=== PATIENT | female | born 1985 | race Caucasian/White ===

== ENCOUNTER 2018-08-04 05:56 | Inpatient (IN) | payer BC, MEDICAID ==
[2018-08-04] MEDS: Lactated Ringers 1,000 ML IV SCH ×4 (06:30→22:37)
[2018-08-04] MEDS ORDERED: Oxytocin/Normal Saline 60 UNIT/1,000 ML BAG ONE (06:53)
[2018-08-04] MEDS ORDERED: Lactated Ringers 1,000 ML IV SCH ×2 (07:00→09:05)
[2018-08-04] MEDS ORDERED: Citric Acid/Sodium Citrate Solution 30 ML Cup PO ONE (07:00)
[2018-08-04] MEDS ORDERED: Clindamycin Phosphate 900 MG in Sodium Chloride 0.9% 100 ML IV ONE (07:00)
[2018-08-04] MEDS ORDERED: Sodium Chloride 0.9% 10 ML Syringe FLUSH PRN (07:00)
[2018-08-04] MEDS ORDERED: Oxytocin/Normal Saline 30 UNIT/500 ML BAG IV SCH (07:00)
[2018-08-04] MEDS ORDERED: Tranexamic Acid 1,000 MG in Sodium Chloride 0.9% 100 ML IV PRN ×2 (07:00→09:05)
[2018-08-04] MEDS ORDERED: Methylergonovine 0.2 MG/1 ML Amp IM PRN (09:05)
[2018-08-04] MEDS ORDERED: diphenhydrAMINE 50 MG/ML SDV IVPUSH PRN (09:05)
[2018-08-04] MEDS ORDERED: Misoprostol 400 MCG (4 X 100 MCG TAB) RECTAL PRN (09:05)
[2018-08-04] MEDS ORDERED: ePHEDrine 50 MG/ML SDV IVPUSH PRN (09:05)
[2018-08-04] MEDS ORDERED: Carboprost Tromethamine 250 MCG/1 ML Amp IM ONE (09:05)
[2018-08-04] MEDS ORDERED: Acetaminophen 325 MG Tab PO PRN (09:05)
[2018-08-04] MEDS ORDERED: Naloxone 2 MG/2 ML Syringe IVPUSH PRN (09:05)
[2018-08-04] MEDS ORDERED: Acetaminophen/oxyCODONE 325-5 MG Tab PO PRN ×2 (09:05)
[2018-08-04] MEDS: Simethicone 80 MG Tab.Chew PO SCH ×4 (11:01→20:33)
[2018-08-04] MEDS: Prenatal Multivitamin with Calcium/Folic Acid/Iron Tab PO SCH (11:06)
[2018-08-04] MEDS: Ondansetron 4 MG/2 ML SDV IV PRN (12:13)
[2018-08-04] MEDS ORDERED: Lactated Ringers 1,000 ML IV ONE (12:15)
[2018-08-04] MEDS ORDERED: Morphine PF 1 MG/ML Amp ONE (12:15)
[2018-08-04] MEDS ORDERED: ePHEDrine 50 MG/ML SDV IV ONE (12:15)
[2018-08-04] MEDS ORDERED: EPINEPHrine 1 MG/ML SDV IV ONE (12:15)
[2018-08-04] MEDS ORDERED: Ketorolac 30 MG/ML SDV IVPUSH ONE (12:15)
[2018-08-04] MEDS ORDERED: Ketorolac 30 MG/ML SDV IVPUSH SCH (14:30)
--- NOTE | 2018-08-04 14:57 | OR ---
DATE: 08/04/2018 OPERATION: Elective repeat low-transverse section. ASSISTANTS: 1. Isaac Burger MD. 2. Shima Flowers, MS-III. PREOPERATIVE DIAGNOSES: 1. A 33-year-old, 4, para 2-0-1-2 at 39 weeks' gestation for elective repeat section. 2. History of macrosomic x2. 3. Group B strep positive with allergy to cephalexin and use of preop clindamycin. 4. History of prior section x2 and a prior failed vaginal after . 5. High-risk . 6. History of malignant melanoma. 7. History of MS. 8. Rubella immune. 9. Blood type O positive. 10.Benign gestational thrombocytopenia with admission platelets 140. 11. Umbilical/ventral hernia. POSTOPERATIVE DIAGNOSES: 1. A 33-year-old, 4, now para 3-0-1-3 at 39 weeks' gestation for elective repeat section delivering @ 8:09a.m. . 2. History of macrosomic infant x2. 3. Group B strep positive with allergy to cephalexin and use of preop clindamycin. 4. History of prior section x2 and a prior failed vaginal after . 5. High-risk . 6. History of malignant melanoma. 7. History of MS. 8. Rubella immune. 9. Blood type O positive. 10.Benign gestational thrombocytopenia with admission platelets 140. 11.Umbilical/ventral hernia. 12. Large for gestational age male weighing 9 pounds 3 ounces/4165 g with scores of 8 and 9, born on 08/04/2018 at 8:09 a.m. FINDINGS: This delightful 33-year-old white female with the above preop diagnoses presented as scheduled for her repeat section. NST was reactive. Her preop labs were drawn and her hemoglobin was noted to be over 13, but platelet count was mildly low at 140. She was seen by anesthesia and cleared for spinal. She was brought down to the OR and underwent spinal anesthesia with excellent results. A Martin catheter was placed with return of clear urine. She was prepped and draped in the usual sterile manner. heart tones were checked throughout prior to procedure and found to be reassuring. Purple surgical marker was used to carmencita the old incision site. A scalpel was used on the skin. Electrocautery was used down to the subcutaneous tissue to the fascia, which was divided transversely. Superior and inferior fascial flaps were developed with sharp and blunt dissection. The rectus was identified and divided in the midline. The peritoneum was identified, and we attempted to enter it and divide it. However, we encountered significant scarring of the peritoneum between the uterus and the anterior abdominal wall. This was taken down with electrocautery very carefully. Once we had adequate visualization and space, we were able to place a large Reinaldo retractor. We then continue to remove the adhesions until we had adequate visualization of the lower uterine segment. A stab incision was made into the lower uterine segment and the uterus was entered with return of clear amniotic fluid. The incision was extended bilaterally by blunt dissection. The vertex was elevated up into the incision and the vertex delivered followed by the remainder of the baby. A viable male infant, had a strong cry at . Was suctioned, dried, and stimulated. Cord was doubly clamped and cut. The baby was carried to the waiting nursery staff by HAKEEM Isbell. He was found to have scores of 8 and 9. time was 8:09 a.m. Weight was 4165 g/9 pounds 3 ounces. A 3-vessel cord was noted and a cord blood sample was obtained. Placenta was removed and later inspected and found to be complete, intact, with a central cord insertion. The uterus was wiped, cleaned, and dried. The uterine incision edges were grasped with Dougherty forceps. The uterus was closed with a running locking 0 Vicryl suture with excellent results. Figure-of - eight sutures were placed in the center and on the left uterine edge for hemostasis. Continued to be some oozing on the left side where the adhesions had been attached, and after the uterus was placed back in position and the retractor removed, we did place some Surgicel there. Peritoneum was then closed with a running Vicryl suture. The subfascial space was irrigated and the fascia was closed with a Maxon loop suture in a running fashion with excellent results. Subcutaneous space was irrigated and all bleeders were electrocauterized. The skin edges were brought together with julia. The patient tolerated the procedure well. The fundus remained firm. Estimated blood loss was 550 mL. The patient received clindamycin 900 mg IV for preop antibiotic. IV Pitocin running per protocol. Urine continues to drain per Martin with no sign of hematuria. The patient has NISHANT hose and SCDs running and will receive Lovenox per Hematology/Oncology recommendations 100 subcu daily starting 12 hours post procedure. We will follow other routine postop and orders. She is transferred to recovery in good condition. All counts were correct and there were no intraoperative complications. MODL /[id number] [email or web address]
[2018-08-04] MEDS: Docusate Sodium 100 MG Cap PO PRN (20:32)
[2018-08-04] MEDS: Enoxaparin 100 MG/1 ML Syringe SUBCUT SCH (20:33)
[2018-08-04] MEDS ORDERED: Zolpidem 5 MG Tab PO PRN (22:58)
[2018-08-05] MEDS: Prenatal Multivitamin with Calcium/Folic Acid/Iron Tab PO SCH (08:38)
[2018-08-05] MEDS: Simethicone 80 MG Tab.Chew PO SCH ×4 (08:38→21:16)
[2018-08-05] MEDS: Docusate Sodium 100 MG Cap PO PRN ×2 (08:38→21:15)
--- NOTE | 2018-08-05 08:49 | PCM.PNPP ---
- General Info Date of Service: 08/05/18 Subjective Update: Patient is 33yo female post op day #1 S/P elective repeat LTCS at 39w0d. Patient has no concerns. No longer experiencing nausea. Reports being sore but does not want Percocet because it makes her "feel funny". Reports taking nothing with previous CS and she is looking to repeat that. Tolerating general diet, ambulating and urinating well, no flatus or BM. Normal amount of bleeding and cramping reported. . No concerns. Denies fever, chills, headache, weakness, shortness of breath, or chest pain. No concerns regarding incision. Functional Status: Reports: Pain Controlled, Tolerating Diet, Ambulating, Urinating, Incentive Spirometry - General Info Date of Service: 08/05/18 - Patient Data Vital Signs - Most Recent: Last Vital Signs Temp 97.8 F 08/05/18 04:00 Pulse 78 08/05/18 04:00 Resp 16 08/05/18 04:00 BP 108/59 L 08/05/18 04:00 Pulse Ox 97 08/05/18 04:00 Weight - Most Recent: 243 lb I&O - Last 24 Hours: Intake & Output 08/04/18 08/05/18 08/05/18 22:59 06:59 14:59 Intake Total 950 Output Total 675 1550 Balance -675 -600 Lab Results - Last 24 Hours: Laboratory Results - last 24 hr 08/04/18 Range/Units 06:40 Blood Type O POSITIVE Gel Antibody Screen Negative Med Orders - Current: Current Medications Acetaminophen (Tylenol) 650 mg PO Q6HR PRN PRN Reason: mild pain or fever Diphenhydramine HCl (Benadryl) 25 mg IVPUSH Q6HR PRN PRN Reason: Itching or Nausea Docusate Sodium (Colace) 100 mg PO Q12HR PRN PRN Reason: Constipation Last Admin: 08/04/18 20:32 Dose: 100 mg Enoxaparin Sodium (Lovenox) 100 mg SUBCUT Q24H [facility] Last Admin: 08/04/18 20:33 Dose: 100 mg Ephedrine Sulfate (Ephedrine Sulfate) 5 mg IVPUSH SEECOMMENT PRN PRN Reason: Other Lactated Ringer's (Ringers, Lactated) 1,000 mls @ 125 mls/hr IV ASDIRECTED [facility] Last Admin: 08/04/18 22:37 Dose: 125 mls/hr Lactated Ringer's (Ringers, Lactated) 1,000 mls @ 500 mls/hr IV .BOLUS [facility] Oxytocin/Sodium Chloride (Pitocin In Ns 30 Unit/500 Ml) 30 unit in 500 mls @ 2 mls/hr IV TITRATE [facility]; Protocol Last Titration: 08/04/18 11:20 Dose: 0 munits/min, 0 mls/hr Tranexamic Acid 1,000 mg/ (Sodium Chloride) 110 mls @ 660 mls/hr IV ONETIME PRN PRN Reason: Bleeding Methylergonovine Maleate (Methergine) 0.2 mg IM ONETIME PRN PRN Reason: Excessive Vaginal Bleeding Misoprostol (Cytotec) 800 mcg RECTAL ASDIRECTED PRN PRN Reason: Excessive bleeding Naloxone HCl (Narcan) 0.1 mg IVPUSH SEECOMMENT PRN PRN Reason: Respiratory Depression Ondansetron HCl (Zofran) 4 mg IV Q4HR PRN PRN Reason: Nausea/Vomiting Last Admin: 08/04/18 12:13 Dose: 4 mg Oxycodone/Acetaminophen (Percocet 325-5 Mg) 1 tab PO Q4HR PRN PRN Reason: Pain (moderate 4-6) Oxycodone/Acetaminophen (Percocet 325-5 Mg) 2 tab PO Q4HR PRN PRN Reason: Pain (severe 7-10) Prenat Multivit/Grease Monkey/Iron/Folic Ac ( Plus Iron) 1 each PO DAILY [facility] Last Admin: 08/04/18 11:06 Dose: Not Given Simethicone (Simethicone) 160 mg PO QID [facility] Last Admin: 08/04/18 20:33 Dose: 160 mg Sodium Chloride (Saline Flush) 10 ml FLUSH ASDIRECTED PRN PRN Reason: Keep Vein Open Zolpidem Tartrate (Ambien) 5 mg PO BEDTIME PRN PRN Reason: Insomnia Discontinued Medications Carboprost Tromethamine (Hemabate Ds) 250 mcg IM ONETIME ONE Stop: 08/04/18 09:06 Last Admin: 08/04/18 11:06 Dose: Not Given Citric Acid/Sodium Citrate (Bicitra Solution) 30 ml PO ONETIME ONE Stop: 08/04/18 07:01 Last Admin: 08/04/18 07:22 Dose: 30 ml Ephedrine Sulfate (Ephedrine Sulfate) 20 mg IV .STK-MED ONE Stop: 08/04/18 12:16 Epinephrine HCl (Adrenalin) 0.1 mg IV .STK-MED ONE Stop: 08/04/18 12:16 Clindamycin Phosphate 900 mg/ (Sodium Chloride) 106 mls @ 200 mls/hr IV ONETIME ONE Stop: 08/04/18 07:31 Last Admin: 08/04/18 07:16 Dose: 200 mls/hr Oxytocin/Sodium Chloride (Pitocin In Ns 30 Unit/500 Ml) Confirm Administered Dose 60 unit in 1,000 mls @ as directed .ROUTE .STK-MED ONE Stop: 08/04/18 06:54 Lactated Ringer's (Ringers, Lactated) 1,000 mls @ as directed IV .STK-MED ONE Stop: 08/04/18 12:16 Ibuprofen (Motrin) 800 mg PO Q8H PRN PRN Reason: mild pain or fever Ketorolac Tromethamine (Toradol) 15 mg IVPUSH Q6H [facility] Stop: 08/04/18 20:31 Last Admin: 08/04/18 14:31 Dose: 15 mg Ketorolac Tromethamine (Toradol) 30 mg IVPUSH .STK-MED ONE Stop: 08/04/18 12:16 Morphine Sulfate (Duramorph Pf) 0.2 mg .XX .STK-MED ONE Stop: 08/04/18 12:16 - Interaction Infant Disposition, : in Room with Family Interaction: Holding Infant Feeding: Continues to Breastfeed Support Person: - Recovery Exam Fundal Tone: Firm Fundal Level: At Umbilicus Fundal Placement: Midline Lochia Amount: Small Lochia Color: Rubra/Red Perineum Description: Intact, Minimal Bruising/Swelling Episiotomy/Laceration: None Bladder Status: Indwelling Catheter in Place Urinary Elimination: Indwelling Catheter - Exam General: Alert, Oriented, Cooperative, No Acute Distress, Mild Distress HEENT: EOMI, Mucous Membr. Moist/[place] Neck: Supple Lungs: Clear to Auscultation, Normal Respiratory Effort Cardiovascular: Regular Rate, Regular Rhythm, No Murmurs GI/Abdominal Exam: Normal Bowel Sounds, Soft, Distended (slight), Tender (mild) , Other (Uterus palpated 2cm below Umbilicus) Extremities: Normal Range of Motion, Pedal Edema (bilataterally, compression stockings on). No: Leg Pain Skin: Warm, Dry, Intact Wound/Incisions: Healing Well, Drainage (minimal shadowing present on dressing. ). No: Erythema Neurological: No New Focal Deficit Psy/Mental Status: Alert, Normal Mood - Problem List Review Problem List Initiated/Reviewed/Updated: Yes - My Orders Last 24 Hours: My Active Orders 08/04/18 09:05 Patient Status [ADT] Routine Communication Order [RC] PER UNIT ROUTINE Communication Order [RC] PER UNIT ROUTINE Intake and Output [RC] Q8H Notify Provider Intake and Out [RC] ASDIRECTED Notify Provider Vital Signs OB [RC] ASDIRECTED RT Incentive Spirometry [RC] Q2HWA Vital Signs [RC] 00,04,08,12,16,20 Acetaminophen [Tylenol] 650 mg PO Q6HR PRN Acetaminophen/oxyCODONE [Percocet 325-5 MG] 1 tab PO Q4HR PRN Acetaminophen/oxyCODONE [Percocet 325-5 MG] 2 tab PO Q4HR PRN Docusate Sodium [Colace] 100 mg PO Q12HR PRN Methylergonovine [Methergine] 0.2 mg IM ONETIME PRN Naloxone [Narcan] 0.1 mg IVPUSH SEECOMMENT PRN Ondansetron [Zofran] 4 mg IV Q4HR PRN Simethicone 160 mg PO QID diphenhydrAMINE [Benadryl] 25 mg IVPUSH Q6HR PRN ePHEDrine [ePHEDrine sulfate] 5 mg IVPUSH SEECOMMENT PRN miSOPROStol [Cytotec] 800 mcg RECTAL ASDIRECTED PRN Antiembolic Hose [OM.PC] Per Unit Routine Assess Lochia [WOMSER] Per Unit Routine Assess Uterine Involution [WOMSER] Per Unit Routine Breast Pump [WOMSER] Per Unit Routine Sequential Compression Device [OM.PC] Per Unit Routine 08/04/18 09:30 Vit with Ca/FA/Iron [ Plus Iron] 1 each PO DAILY 08/04/18 22:58 Zolpidem [Ambien] 5 mg PO BEDTIME PRN 08/05/18 06:00 CBC W/O DIFF,HEMOGRAM [HEME] Routine - Plan Plan:: Assessment: 33 year old 4 now para 3-0-1-3 Hospital day #1 S/P elective repeat LTCS and delivery of term male infant. 1. 2. Ventral/umbilical hernia 3. Hx of macrosomic infant x2 4. Hx of prior section x2 and a prior failed vaginal after . 5. High risk 6. Hx of malignant melanoma 7. Hx of MS 8. Rubella Immune 9. Blood type O positive 10. Benign gestational thrombocytopenia with admission platelets 140. Post-op CBC pending. 11. Large for gestational age male weighing 9lb 3oz/4165g with scores of 8 and 9, born on [birth year] at 8:09am. Plan: 1. Continue routine post-/post-operative cares 2. Treatment with Lovenox SQ daily at 2100 for 10 days for DVT prophylaxis due to significant past medical history 3. Surgery Consult will be placed with Dr. Leone for Tuesday08/07/18 prior to discharge for ventral/umbilical hernia repair Patient was seen and evaluated today by myself and Dr. Cata Juárez. Assessment and plan under advisement of Dr. Juárez. -Shima Flowers, MS-III
[2018-08-05] MEDS ORDERED: Ibuprofen 800 MG Tab PO PRN (10:30)
[2018-08-05] MEDS: Ondansetron 4 MG/2 ML SDV IV PRN ×2 (10:51→16:16)
[2018-08-05] MEDS: Acetaminophen/oxyCODONE 325-5 MG Tab PO PRN (21:14)
[2018-08-05] MEDS: Ondansetron 4 MG Tab.DIS PO PRN (21:16)
[2018-08-05] MEDS: Enoxaparin 100 MG/1 ML Syringe SUBCUT SCH (21:16)
[2018-08-06] MEDS: Acetaminophen/oxyCODONE 325-5 MG Tab PO PRN ×7 (02:06→21:01)
[2018-08-06] MEDS: Ondansetron 4 MG Tab.DIS PO PRN ×5 (02:06→21:01)
[2018-08-06] MEDS ORDERED: Acetaminophen/oxyCODONE 325-5 MG Tab PO PRN (02:16)
[2018-08-06] MEDS: Simethicone 80 MG Tab.Chew PO SCH ×4 (08:04→21:00)
[2018-08-06] MEDS: Prenatal Multivitamin with Calcium/Folic Acid/Iron Tab PO SCH (08:06)
[2018-08-06] MEDS: Docusate Sodium 100 MG Cap PO PRN ×2 (08:07→21:01)
--- NOTE | 2018-08-06 15:03 | PCM.PNPP ---
- General Info Date of Service: 08/06/18 (POD #2/PPD #2) Admission Dx/Problem (Free Text): Cyndi is now second day after ERCS. doing well. on Lovenox for hx of metastatic malignant melanoma of left ankle resulting in lower leg edema and increased risk for DVT, therefore oncology recommends 10day course of PP lovenox. we are not using ibuprofen for pain, and she does not like the percocet, so is using very small amounts, along with zofran for nausea. eating ok. ambulating now, and passing gas. voiding ok with bill out. took shower, and has stronger compression NISHANT hose back on. nursing without difficulty. no new complaints. Subjective Update: 08-06-18 Cyndi is now second day after ERCS. doing well. on Lovenox for hx of metastatic malignant melanoma of left ankle resulting in lower leg edema and increased risk for DVT, therefore oncology recommends 10day course of PP lovenox. we are not using ibuprofen for pain, and she does not like the percocet, so is using very small amounts, along with zofran for nausea. eating ok. ambulating now, and passing gas. voiding ok with bill out. took shower, and has stronger compression NISHANT hose back on. nursing without difficulty. no new complaints. hmb Yesterdays note from med student: Patient is 33yo female post op day #2 S/P elective repeat LTCS at 39w0d. Patient has no concerns. No longer experiencing nausea. Reports being sore but does not want Percocet because it makes her "feel funny". Reports taking nothing with previous CS and she is looking to repeat that. Tolerating general diet, ambulating and urinating well, no flatus or BM. Normal amount of bleeding and cramping reported. . No concerns. Denies fever, chills, headache, weakness, shortness of breath, or chest pain. No concerns regarding incision. Functional Status: Reports: Pain Controlled (taking only small amounts of percocet, and no ibuprofen. declines Tylenol as not helpful), Tolerating Diet, Ambulating, Urinating, Other (passing flatus today) - Review of Systems General: Reports: No Symptoms HEENT: Reports: No Symptoms Pulmonary: Reports: No Symptoms, Other (using incentive spirometer) Cardiovascular: Reports: No Symptoms Gastrointestinal: Reports: No Symptoms Genitourinary: Reports: No Symptoms Musculoskeletal: Reports: No Symptoms Skin: Reports: No Symptoms Neurological: Reports: No Symptoms Psychiatric: Reports: No Symptoms - General Info Date of Service: 08/06/18 - Patient Data Vital Signs - Most Recent: Last Vital Signs Temp 99.2 F 08/06/18 12:00 Pulse 92 08/06/18 12:00 Resp 16 08/06/18 08:00 BP 111/70 08/06/18 12:00 Pulse Ox 98 08/06/18 08:00 Weight - Most Recent: 243 lb Med Orders - Current: Current Medications Acetaminophen (Tylenol) 650 mg PO Q6HR PRN PRN Reason: mild pain or fever Docusate Sodium (Colace) 100 mg PO Q12HR PRN PRN Reason: Constipation Last Admin: 08/06/18 08:07 Dose: 100 mg Enoxaparin Sodium (Lovenox) 100 mg SUBCUT Q24H [facility] Last Admin: 08/05/18 21:16 Dose: 100 mg Ondansetron HCl (Zofran Odt) 4 mg PO Q4H PRN PRN Reason: Nausea Last Admin: 08/06/18 12:21 Dose: 4 mg Oxycodone/Acetaminophen (Percocet 325-5 Mg) 0.5 tab PO Q2H PRN PRN Reason: Pain Last Admin: 08/06/18 14:24 Dose: 0.5 tab Oxycodone/Acetaminophen (Percocet 325-5 Mg) 1 tab PO Q4H PRN PRN Reason: Pain Prenat Multivit/Grant/Iron/Folic Ac ( Plus Iron) 1 each PO DAILY [facility] Last Admin: 08/06/18 08:06 Dose: 1 each Simethicone (Simethicone) 160 mg PO QID [facility] Last Admin: 08/06/18 12:16 Dose: 160 mg Zolpidem Tartrate (Ambien) 5 mg PO BEDTIME PRN PRN Reason: Insomnia Discontinued Medications Carboprost Tromethamine (Hemabate Ds) 250 mcg IM ONETIME ONE Stop: 08/04/18 09:06 Last Admin: 08/04/18 11:06 Dose: Not Given Citric Acid/Sodium Citrate (Bicitra Solution) 30 ml PO ONETIME ONE Stop: 08/04/18 07:01 Last Admin: 08/04/18 07:22 Dose: 30 ml Diphenhydramine HCl (Benadryl) 25 mg IVPUSH Q6HR PRN PRN Reason: Itching or Nausea Ephedrine Sulfate (Ephedrine Sulfate) 5 mg IVPUSH SEECOMMENT PRN PRN Reason: Other Ephedrine Sulfate (Ephedrine Sulfate) 20 mg IV .STK-MED ONE Stop: 08/04/18 12:16 Epinephrine HCl (Adrenalin) 0.1 mg IV .STK-MED ONE Stop: 08/04/18 12:16 Lactated Ringer's (Ringers, Lactated) 1,000 mls @ 125 mls/hr IV ASDIRECTED [facility] Last Admin: 08/04/18 22:37 Dose: 125 mls/hr Lactated Ringer's (Ringers, Lactated) 1,000 mls @ 500 mls/hr IV .BOLUS [facility] Oxytocin/Sodium Chloride (Pitocin In Ns 30 Unit/500 Ml) 30 unit in 500 mls @ 2 mls/hr IV TITRATE [facility]; Protocol Last Titration: 08/04/18 11:20 Dose: 0 munits/min, 0 mls/hr Tranexamic Acid 1,000 mg/ (Sodium Chloride) 110 mls @ 660 mls/hr IV ONETIME PRN PRN Reason: Bleeding Clindamycin Phosphate 900 mg/ (Sodium Chloride) 106 mls @ 200 mls/hr IV ONETIME ONE Stop: 08/04/18 07:31 Last Admin: 08/04/18 07:16 Dose: 200 mls/hr Oxytocin/Sodium Chloride (Pitocin In Ns 30 Unit/500 Ml) Confirm Administered Dose 60 unit in 1,000 mls @ as directed .ROUTE .STK-MED ONE Stop: 08/04/18 06:54 Lactated Ringer's (Ringers, Lactated) 1,000 mls @ as directed IV .STK-MED ONE Stop: 08/04/18 12:16 Ibuprofen (Motrin) 800 mg PO Q8H PRN PRN Reason: mild pain or fever Ketorolac Tromethamine (Toradol) 15 mg IVPUSH Q6H [facility] Stop: 08/04/18 20:31 Last Admin: 08/04/18 14:31 Dose: 15 mg Ketorolac Tromethamine (Toradol) 30 mg IVPUSH .STK-MED ONE Stop: 08/04/18 12:16 Methylergonovine Maleate (Methergine) 0.2 mg IM ONETIME PRN PRN Reason: Excessive Vaginal Bleeding Misoprostol (Cytotec) 800 mcg RECTAL ASDIRECTED PRN PRN Reason: Excessive bleeding Morphine Sulfate (Duramorph Pf) 0.2 mg .XX .STK-MED ONE Stop: 08/04/18 12:16 Naloxone HCl (Narcan) 0.1 mg IVPUSH SEECOMMENT PRN PRN Reason: Respiratory Depression Ondansetron HCl (Zofran) 4 mg IV Q4HR PRN PRN Reason: Nausea/Vomiting Last Admin: 08/05/18 16:16 Dose: 4 mg Oxycodone/Acetaminophen (Percocet 325-5 Mg) 1 tab PO Q4HR PRN PRN Reason: Pain (moderate 4-6) Last Admin: 08/05/18 10:51 Dose: 1 tab Oxycodone/Acetaminophen (Percocet 325-5 Mg) 2 tab PO Q4HR PRN PRN Reason: Pain (severe 7-10) Last Admin: 08/05/18 16:16 Dose: 2 tab Sodium Chloride (Saline Flush) 10 ml FLUSH ASDIRECTED PRN PRN Reason: Keep Vein Open Last Admin: 08/05/18 10:50 Dose: 10 ml - Interaction Disposition, : [place] in Room with Family Interaction: Holding Infant Infant Feeding: Continues to Breastfeed Support Person: , Other (see below) (2 other children here for Mother's Day visit. ) - Recovery Exam Fundal Tone: Firm Fundal Level: At Umbilicus Fundal Placement: Midline Lochia Amount: Small Lochia Color: Rubra/Red Perineum Description: Intact, Minimal Bruising/Swelling Episiotomy/Laceration: None Bladder Status: Voiding Urinary Elimination: Voided Other Urinary Elimination, : voided 300mls at 0800 - Exam General: Alert, Oriented HEENT: Pupils Equal Neck: Supple Lungs: Clear to Auscultation, Normal Respiratory Effort Cardiovascular: Regular Rate, Regular Rhythm GI/Abdominal Exam: Normal Bowel Sounds, Soft, Non-Tender, No Organomegaly, No Abnormal Bruit, No Mass, Pelvis Stable, Other (incision looks good) Extremities: Normal Inspection, Normal Range of Motion, Non-Tender, Normal Capillary Refill, Pedal Edema (mod both sides) Skin: Warm, Dry, Intact Wound/Incisions: Healing Well Neurological: No New Focal Deficit Psy/Mental Status: Alert, Normal Affect, Normal Mood - Problem List & Annotations (1) delivery, delivered, current hospitalization SNOMED Code(s): 175632964 Code(s): O82 - ENCOUNTER FOR DELIVERY WITHOUT INDICATION Status: Acute Current Visit: Yes (2) Previous delivery affecting , delivered SNOMED Code(s): 016583142, 269827898 Code(s): O34.219 - MATERNAL CARE FOR UNSP TYPE SCAR FROM PREVIOUS DEL Status: Acute Current Visit: Yes (3) Group B streptococcal carriage complicating SNOMED Code(s): 511457014903230 Code(s): O99.820 - STREPTOCOCCUS B CARRIER STATE COMPLICATING Status: Acute Current Visit: Yes (4) Macrosomia affecting management of mother, antepartum SNOMED Code(s): 78385342 Code(s): O36.60X0 - MATERNAL CARE FOR EXCESS GROWTH, UNSP TRIMESTER, UNSP Status: Acute Current Visit: Yes (5) Rubella immune SNOMED Code(s): 212837674 Code(s): Z78.9 - OTHER SPECIFIED HEALTH STATUS Status: Acute Current Visit: Yes (6) Blood type O+ SNOMED Code(s): 868578009 Code(s): Z67.40 - TYPE O BLOOD, RH POSITIVE Status: Acute Current Visit: Yes (7) History of malignant melanoma of skin SNOMED Code(s): 840618814666 Code(s): Z85.820 - PERSONAL HISTORY OF MALIGNANT MELANOMA OF SKIN Status: Acute Current Visit: Yes (8) History of multiple sclerosis SNOMED Code(s): 944544170 Code(s): Z86.69 - PERSONAL HISTORY OF DIS OF THE NERVOUS SYS AND SENSE ORGANS Status: Acute Current Visit: Yes (9) Umbilical hernia SNOMED Code(s): 145010373 Code(s): K42.9 - UMBILICAL HERNIA WITHOUT OBSTRUCTION OR GANGRENE Status: Acute Current Visit: Yes (10) Ventral hernia SNOMED Code(s): 502991870 Code(s): K43.9 - VENTRAL HERNIA WITHOUT OBSTRUCTION OR GANGRENE Status: Acute Current Visit: Yes - Problem List Review Problem List Initiated/Reviewed/Updated: Yes - My Orders Last 24 Hours: My Active Orders 08/05/18 16:29 Ondansetron [Zofran ODT] 4 mg PO Q4H PRN 08/05/18 20:47 Acetaminophen/oxyCODONE [Percocet 325-5 MG] 0.5 tab PO Q2H PRN 08/06/18 02:16 Acetaminophen/oxyCODONE [Percocet 325-5 MG] 1 tab PO Q4H PRN 08/07/18 05:11 CBC W/O DIFF,HEMOGRAM [HEME] AM - Plan Plan:: Assessment: 33 year old 4 now para 3-0-1-3 Hospital day #1 S/P elective repeat LTCS and delivery of term male . 1. 2. Ventral/umbilical hernia 3. Hx of macrosomic x2 4. Hx of prior section x2 and a prior failed vaginal after . 5. High risk 6. Hx of malignant melanoma 7. Hx of MS 8. Rubella Immune 9. Blood type O positive 10. Benign gestational thrombocytopenia with admission platelets 140. Post-op CBC pending. 11. Large for gestational age male weighing 9lb 3oz/4165g with scores of 8 and 9, born on [birth year] at 8:09am. Plan: 1. Continue routine post-/post-operative cares 2. Treatment with Lovenox SQ daily at 2100 for 10 days for DVT prophylaxis due to significant past medical history 3. Surgery Consult will be placed with Dr. Leone for Tuesday08/07/18 prior to discharge for ventral/umbilical hernia repair Patient was seen and evaluated today by myself and Dr. Cata Juárez. Assessment and plan under advisement of Dr. Juárez. -Shima Kristie, MS-III DOS: 08-06-18 Doing well today, PPD #2/ POD #2 Dx as noted above. will continue current cares. see notes for details. CBC in a.m. continue Lovenox. Consult Sulema for re-discussion re: ventral/umbilical hernia (has seen before re: this) likely home tomorrow. all questions answered for Cyndi and family. b
[2018-08-06] MEDS: Enoxaparin 100 MG/1 ML Syringe SUBCUT SCH (21:02)
[2018-08-07] MEDS: Acetaminophen/oxyCODONE 325-5 MG Tab PO PRN ×5 (00:09→12:10)
[2018-08-07] MEDS: Ondansetron 4 MG Tab.DIS PO PRN ×2 (02:21→06:26)
[2018-08-07] MEDS: Prenatal Multivitamin with Calcium/Folic Acid/Iron Tab PO SCH ×2 (07:57→08:05)
[2018-08-07] MEDS: Docusate Sodium 100 MG Cap PO PRN (07:58)
[2018-08-07] MEDS: Simethicone 80 MG Tab.Chew PO SCH ×3 (07:58→12:10)
[2018-08-07 08:05] VITALS: BP 109/60
--- NOTE | 2018-08-07 08:57 | PCM.DCSUM1 ---
<KristieShima - Last Filed: 08/07/18 14:48> Discharge Summary - Hospital Course Free Text/Narrative:: Cyndi is 33yo Hospital day #4 S/P ERLTCS and delivery of term male at 39w0d. 1. 2. Ventral/umbilical hernia 3. Hx of macrosomic infant x2 4. Hx of prior section x2 and prior failed vaginal after . 5. High risk 6. Hx of malignant melanoma 7. Hx of MS 8. Rubella Immune 9. Blood type O positive 10. Benign gestational thrombocytopenia with admission platelets 140. Post-op CBC 11. Delivery of Large for gestational age male weighting 4165g/ 9lb 3oz with scores of 8 & 9 born on [birth year] at 8:09am. SUBJECTIVE: Patient is doing well. No concerns. On Lovenox for hx of metastatic malignant melanoma of left ankle resulting in lower leg edema and increased risk of DVT, therefore oncology recommends 10 day course of PP lovenox. Pain is controlled with very small doses of percocet along with zofran for nausea. Patient does not like percocet but is willing to use very small doses, as ibuprofen is not indicated with lovenox treatment. Patient is tolerating general diet, ambulating well, urinating appropriately, and passing flatus. Moderate lower extremity edema is still present and patient is using stronger compression NISHANT hose. Nursing well without difficulty. Incision clean and dry. [place] in place. Denies headache, fever, chills, dizziness, lightheadedness, chest pain, shortness of breath, calf pain. Looking forward to discharge later today. Referral was placed to Dr. Leone regarding ventral/umbilical hernia. He will consult today prior to discharge. Laboratory Results: CBC -WBC 9.5 -RBC 2.88 -Hgb 9.5 -Hct 28 -Plt count 166 All questions answered and Cyndi is in agreement with this plan. Patient was seen and evaluated today by myself and Dr. Cata Juárez. Discharge summary under advisement of Dr. Juárez. -Shima lFowers, MS-III - Discharge Data Discharge Disposition: Home, Self-Care 01 Condition: Good - Patient Summary/Data Consults: Consultations 08/02/18 19:18 Consult to Software Validation Technician [CONS] Routine - Patient Instructions Diet: Regular Diet as Tolerated Activity: As Tolerated, No Lifting Over 20 Pounds, No Strenuous Activities, Rest and Relax Today Driving: Do Not Drive (While taking percocet) Showering/Bathing: May Shower Wound/Incision Care: Keep Operative Site/Wound Site Clean and Dry, Change Dressing Daily Notify Provider of: Fever, Increased Pain, Swelling and Redness, Drainage, Nausea and/or Vomiting - Discharge Plan Home Medications: Home Meds PNV95/Ferrous Fumarate/FA [ Multivitamins] 1 tab PO DAILY 04/17/14 [ History] Calcium Carbonate/Vitamin D3 [Calcium 1,000 + D3 Caplet] 1 tab PO DAILY [History] Patient Handouts: Baby Blues, Care After Delivery, Incision Care, Adult, [id number] - Discharge Summary/Plan Comment Discharge Summary/Plan Comment: Follow-up: Patient is to return for staple removal and first well child check with Dr. Juárez on 08/11/18 at 9:45am. Prescription for Percocet 5/325mg 1/2 tab QID PRN for pain 20 tabs given. Patient is to call clinic or labor and delivery with concerning symptoms of fever greater than 100.4F, uncontrolled headache, incisional bleeding, redness or swelling. - General Info Date of Service: 08/07/18 - Patient Data Vitals - Most Recent: Last Vital Signs Temp 98.7 F 08/07/18 08:00 Pulse 82 08/07/18 08:00 Resp 16 08/07/18 08:00 BP 109/60 08/07/18 08:00 Pulse Ox 100 08/07/18 08:00 Weight - Most Recent: 243 lb Lab Results - Last 24 hrs: Laboratory Results - last 24 hr 08/07/18 Range/Units 05:35 WBC 9.5 (5.0-10.0) 10^3/uL RBC 2.88 L (4.2-5.4) 10^6/uL Hgb 9.5 L (12.0-16.0) g/dL Hct 28.0 L (37.0-47.0) % MCV 97.2 (80-100) fL MCH 33.0 (27.0-34.0) pg MCHC 33.9 (33.0-35.0) g/dL Plt Count 166 (150-450) 10^3/uL Med Orders - Current: Current Medications Acetaminophen (Tylenol) 650 mg PO Q6HR PRN PRN Reason: mild pain or fever Last Admin: 08/07/18 00:12 Dose: 650 mg Docusate Sodium (Colace) 100 mg PO Q12HR PRN PRN Reason: Constipation Last Admin: 08/07/18 07:58 Dose: 100 mg Enoxaparin Sodium (Lovenox) 100 mg SUBCUT Q24H [facility] Last Admin: 08/06/18 21:02 Dose: 100 mg Ondansetron HCl (Zofran Odt) 4 mg PO Q4H PRN PRN Reason: Nausea Last Admin: 08/07/18 06:26 Dose: 4 mg Oxycodone/Acetaminophen (Percocet 325-5 Mg) 0.5 tab PO Q2H PRN PRN Reason: Pain Last Admin: 08/07/18 06:26 Dose: 0.5 tab Oxycodone/Acetaminophen (Percocet 325-5 Mg) 1 tab PO Q4H PRN PRN Reason: Pain Prenat Multivit/[place]/Iron/Folic Ac ( Plus Iron) 1 each PO DAILY [facility] Last Admin: 08/07/18 08:05 Dose: Not Given Simethicone (Simethicone) 160 mg PO QID [facility] Last Admin: 08/07/18 08:05 Dose: Not Given Zolpidem Tartrate (Ambien) 5 mg PO BEDTIME PRN PRN Reason: Insomnia Discontinued Medications Carboprost Tromethamine (Hemabate Ds) 250 mcg IM ONETIME ONE Stop: 08/04/18 09:06 Last Admin: 08/04/18 11:06 Dose: Not Given Citric Acid/Sodium Citrate (Bicitra Solution) 30 ml PO ONETIME ONE Stop: 08/04/18 07:01 Last Admin: 08/04/18 07:22 Dose: 30 ml Diphenhydramine HCl (Benadryl) 25 mg IVPUSH Q6HR PRN PRN Reason: Itching or Nausea Ephedrine Sulfate (Ephedrine Sulfate) 5 mg IVPUSH SEECOMMENT PRN PRN Reason: Other Ephedrine Sulfate (Ephedrine Sulfate) 20 mg IV .STK-MED ONE Stop: 08/04/18 12:16 Epinephrine HCl (Adrenalin) 0.1 mg IV .STK-MED ONE Stop: 08/04/18 12:16 Lactated Ringer's (Ringers, Lactated) 1,000 mls @ 125 mls/hr IV ASDIRECTED WOLF Last Admin: 08/04/18 22:37 Dose: 125 mls/hr Lactated Ringer's (Ringers, Lactated) 1,000 mls @ 500 mls/hr IV .BOLUS WOLF Oxytocin/Sodium Chloride (Pitocin In Ns 30 Unit/500 Ml) 30 unit in 500 mls @ 2 mls/hr IV TITRATE WOLF; Protocol Last Titration: 08/04/18 11:20 Dose: 0 munits/min, 0 mls/hr Tranexamic Acid 1,000 mg/ (Sodium Chloride) 110 mls @ 660 mls/hr IV ONETIME PRN PRN Reason: Bleeding Clindamycin Phosphate 900 mg/ (Sodium Chloride) 106 mls @ 200 mls/hr IV ONETIME ONE Stop: 08/04/18 07:31 Last Admin: 08/04/18 07:16 Dose: 200 mls/hr Oxytocin/Sodium Chloride (Pitocin In Ns 30 Unit/500 Ml) Confirm Administered Dose 60 unit in 1,000 mls @ as directed .ROUTE .STK-MED ONE Stop: 08/04/18 06:54 Lactated Ringer's (Ringers, Lactated) 1,000 mls @ as directed IV .STK-MED ONE Stop: 08/04/18 12:16 Ibuprofen (Motrin) 800 mg PO Q8H PRN PRN Reason: mild pain or fever Ketorolac Tromethamine (Toradol) 15 mg IVPUSH Q6H [facility] Stop: 08/04/18 20:31 Last Admin: 08/04/18 14:31 Dose: 15 mg Ketorolac Tromethamine (Toradol) 30 mg IVPUSH .STK-MED ONE Stop: 08/04/18 12:16 Methylergonovine Maleate (Methergine) 0.2 mg IM ONETIME PRN PRN Reason: Excessive Vaginal Bleeding Misoprostol (Cytotec) 800 mcg RECTAL ASDIRECTED PRN PRN Reason: Excessive bleeding Morphine Sulfate (Duramorph Pf) 0.2 mg .XX .STK-MED ONE Stop: 08/04/18 12:16 Naloxone HCl (Narcan) 0.1 mg IVPUSH SEECOMMENT PRN PRN Reason: Respiratory Depression Ondansetron HCl (Zofran) 4 mg IV Q4HR PRN PRN Reason: Nausea/Vomiting Last Admin: 08/05/18 16:16 Dose: 4 mg Oxycodone/Acetaminophen (Percocet 325-5 Mg) 1 tab PO Q4HR PRN PRN Reason: Pain (moderate 4-6) Last Admin: 08/05/18 10:51 Dose: 1 tab Oxycodone/Acetaminophen (Percocet 325-5 Mg) 2 tab PO Q4HR PRN PRN Reason: Pain (severe 7-10) Last Admin: 08/05/18 16:16 Dose: 2 tab Sodium Chloride (Saline Flush) 10 ml FLUSH ASDIRECTED PRN PRN Reason: Keep Vein Open Last Admin: 08/05/18 10:50 Dose: 10 ml - Exam General: Reports: Alert, Oriented, Cooperative, No Acute Distress HEENT: Reports: EOMI, Mucous Membr. Moist/[address] Neck: Reports: Supple Lungs: Reports: Clear to Auscultation, Normal Respiratory Effort. Denies: Crackles, Wheezing Cardiovascular: Reports: Regular Rate, Regular Rhythm GI/Abdominal Exam: Normal Bowel Sounds, Soft, Non-Tender Extremities: Pedal Edema (Moderate, strong compression stockings in place. ) Skin: Reports: Warm, Dry, Intact Wound/Incisions: Reports: Healing Well, Dressing Dry and Intact. Denies: Erythema Psy/Mental Status: Reports: Alert, Normal Affect <Cata Juárez - Last Filed: 08/08/18 07:13> Discharge Summary - Discharge Data Discharge Date: 08/07/18 - Discharge Diagnosis/Problem(s) (1) delivery, delivered, current hospitalization SNOMED Code(s): 971073994 ICD Code: O82 - ENCOUNTER FOR DELIVERY WITHOUT INDICATION Status: Acute (2) Previous delivery affecting , delivered SNOMED Code(s): 275085235, 764798482 ICD Code: O34.219 - MATERNAL CARE FOR UNSP TYPE SCAR FROM PREVIOUS DEL Status: Acute (3) Group B streptococcal carriage complicating SNOMED Code(s): 547409726644052 ICD Code: O99.820 - STREPTOCOCCUS B CARRIER STATE COMPLICATING Status: Acute (4) Macrosomia affecting management of mother, antepartum SNOMED Code(s): 05112736 ICD Code: O36.60X0 - MATERNAL CARE FOR EXCESS GROWTH, UNSP TRIMESTER, UNSP Status: Acute (5) Rubella immune SNOMED Code(s): 204573291 ICD Code: Z78.9 - OTHER SPECIFIED HEALTH STATUS Status: Acute (6) Blood type O+ SNOMED Code(s): 006608116 ICD Code: Z67.40 - TYPE O BLOOD, RH POSITIVE Status: Acute (7) History of malignant melanoma of skin SNOMED Code(s): 670206391093 ICD Code: Z85.820 - PERSONAL HISTORY OF MALIGNANT MELANOMA OF SKIN Status: Acute (8) History of multiple sclerosis SNOMED Code(s): 030023015 ICD Code: Z86.69 - PERSONAL HISTORY OF DIS OF THE NERVOUS SYS AND SENSE ORGANS Status: Acute (9) Umbilical hernia SNOMED Code(s): 774813859 ICD Code: K42.9 - UMBILICAL HERNIA WITHOUT OBSTRUCTION OR GANGRENE Status: Acute (10) Ventral hernia SNOMED Code(s): 167928793 ICD Code: K43.9 - VENTRAL HERNIA WITHOUT OBSTRUCTION OR GANGRENE Status: Acute - Patient Summary/Data Consults: Consultations 08/02/18 19:18 Consult to Software Validation Technician [CONS] Routine - Discharge Summary/Plan Comment DC Time >30 min.: No - Patient Data Vitals - Most Recent: Last Vital Signs Temp 98.7 F 08/07/18 08:00 Pulse 82 08/07/18 08:00 Resp 16 08/07/18 08:00 BP 109/60 08/07/18 08:00 Pulse Ox 100 08/07/18 08:00 Med Orders - Current: Current Medications Discontinued Medications Acetaminophen (Tylenol) 650 mg PO Q6HR PRN PRN Reason: mild pain or fever Last Admin: 08/07/18 00:12 Dose: 650 mg Carboprost Tromethamine (Hemabate Ds) 250 mcg IM ONETIME ONE Stop: 08/04/18 09:06 Last Admin: 08/04/18 11:06 Dose: Not Given Citric Acid/Sodium Citrate (Bicitra Solution) 30 ml PO ONETIME ONE Stop: 08/04/18 07:01 Last Admin: 08/04/18 07:22 Dose: 30 ml Diphenhydramine HCl (Benadryl) 25 mg IVPUSH Q6HR PRN PRN Reason: Itching or Nausea Docusate Sodium (Colace) 100 mg PO Q12HR PRN PRN Reason: Constipation Last Admin: 08/07/18 07:58 Dose: 100 mg Enoxaparin Sodium (Lovenox) 100 mg SUBCUT Q24H [facility] Last Admin: 08/06/18 21:02 Dose: 100 mg Ephedrine Sulfate (Ephedrine Sulfate) 5 mg IVPUSH SEECOMMENT PRN PRN Reason: Other Ephedrine Sulfate (Ephedrine Sulfate) 20 mg IV .STK-MED ONE Stop: 08/04/18 12:16 Epinephrine HCl (Adrenalin) 0.1 mg IV .STK-MED ONE Stop: 08/04/18 12:16 Lactated Ringer's (Ringers, Lactated) 1,000 mls @ 125 mls/hr IV ASDIRECTED WOLF Last Admin: 08/04/18 22:37 Dose: 125 mls/hr Lactated Ringer's (Ringers, Lactated) 1,000 mls @ 500 mls/hr IV .BOLUS WOLF Oxytocin/Sodium Chloride (Pitocin In Ns 30 Unit/500 Ml) 30 unit in 500 mls @ 2 mls/hr IV TITRATE WOLF; Protocol Last Titration: 08/04/18 11:20 Dose: 0 munits/min, 0 mls/hr Tranexamic Acid 1,000 mg/ (Sodium Chloride) 110 mls @ 660 mls/hr IV ONETIME PRN PRN Reason: Bleeding Clindamycin Phosphate 900 mg/ (Sodium Chloride) 106 mls @ 200 mls/hr IV ONETIME ONE Stop: 08/04/18 07:31 Last Admin: 08/04/18 07:16 Dose: 200 mls/hr Oxytocin/Sodium Chloride (Pitocin In Ns 30 Unit/500 Ml) Confirm Administered Dose 60 unit in 1,000 mls @ as directed .ROUTE .STK-MED ONE Stop: 08/04/18 06:54 Lactated Ringer's (Ringers, Lactated) 1,000 mls @ as directed IV .STK-MED ONE Stop: 08/04/18 12:16 Ibuprofen (Motrin) 800 mg PO Q8H PRN PRN Reason: mild pain or fever Ketorolac Tromethamine (Toradol) 15 mg IVPUSH Q6H [facility] Stop: 08/04/18 20:31 Last Admin: 08/04/18 14:31 Dose: 15 mg Ketorolac Tromethamine (Toradol) 30 mg IVPUSH .STK-MED ONE Stop: 08/04/18 12:16 Methylergonovine Maleate (Methergine) 0.2 mg IM ONETIME PRN PRN Reason: Excessive Vaginal Bleeding Misoprostol (Cytotec) 800 mcg RECTAL ASDIRECTED PRN PRN Reason: Excessive bleeding Morphine Sulfate (Duramorph Pf) 0.2 mg .XX .STK-MED ONE Stop: 08/04/18 12:16 Naloxone HCl (Narcan) 0.1 mg IVPUSH SEECOMMENT PRN PRN Reason: Respiratory Depression Ondansetron HCl (Zofran) 4 mg IV Q4HR PRN PRN Reason: Nausea/Vomiting Last Admin: 08/05/18 16:16 Dose: 4 mg Ondansetron HCl (Zofran Odt) 4 mg PO Q4H PRN PRN Reason: Nausea Last Admin: 08/07/18 06:26 Dose: 4 mg Oxycodone/Acetaminophen (Percocet 325-5 Mg) 1 tab PO Q4HR PRN PRN Reason: Pain (moderate 4-6) Last Admin: 08/05/18 10:51 Dose: 1 tab Oxycodone/Acetaminophen (Percocet 325-5 Mg) 2 tab PO Q4HR PRN PRN Reason: Pain (severe 7-10) Last Admin: 08/05/18 16:16 Dose: 2 tab Oxycodone/Acetaminophen (Percocet 325-5 Mg) 0.5 tab PO Q2H PRN PRN Reason: Pain Last Admin: 08/07/18 12:10 Dose: 0.5 tab Oxycodone/Acetaminophen (Percocet 325-5 Mg) 1 tab PO Q4H PRN PRN Reason: Pain Prenat Multivit/[place]/Iron/Folic Ac ( Plus Iron) 1 each PO DAILY [facility] Last Admin: 08/07/18 08:05 Dose: Not Given Simethicone (Simethicone) 160 mg PO QID [facility] Last Admin: 08/07/18 12:10 Dose: 160 mg Sodium Chloride (Saline Flush) 10 ml FLUSH ASDIRECTED PRN PRN Reason: Keep Vein Open Last Admin: 08/05/18 10:50 Dose: 10 ml Zolpidem Tartrate (Ambien) 5 mg PO BEDTIME PRN PRN Reason: Insomnia Attestation - Student - Attestation Statement Attestation Statement: I personally performed or re-performed the physical examination and medical decision making. I have verified all student documentation or findings, including history, physical exam and/or medical decision making. Cata Juárez MD
== END 2018-08-07 15:00 | disposition home or self-care (01) | DRG 540 ==
LOC: DL.OB 05:56 → OBSVTOIN 08:09
PROVIDERS: ADMIT Family Medicine; ATTEND Family Medicine
PROC: 10D00Z1 Extraction of Products of Conception, Low, Open Approach (ICD-10-PCS; principal; 2018-08-04)
DX: O34.211 Maternal care for low transverse scar from previous cesarean delivery (principal); Z3A.39 39 weeks gestation of pregnancy; Z37.0 Single live birth; O99.824 Streptococcus B carrier state complicating childbirth; O36.63X0 Maternal care for excessive fetal growth, third trimester, not applicable or unspecified; O26.893 Other specified pregnancy related conditions, third trimester; K42.9 Umbilical hernia without obstruction or gangrene; K43.9 Ventral hernia without obstruction or gangrene; O99.113 Other diseases of the blood and blood-forming organs and certain disorders involving the immune mechanism complicating pregnancy, third trimester; D69.6 Thrombocytopenia, unspecified
CPT/HCPCS: 36415; 85025; 85027; 86850; 86900; 86901; 94010; A9270-GY; J0171; J1650; J1885; J2274; J2405; J2590; J3490; J7050; J7120

== ENCOUNTER 2018-09-04 10:28 | Outpatient (CLI) | payer BC, MEDICAID ==
--- NOTE | 2018-09-05 13:24 | CN ---
SERVICE DATE: 09/04/2018 SUBJECTIVE: This 33-year-old female was initially seen by me while she was in the hospital back on 06/09. She was post delivery of her , and at that time, she had an umbilical hernia noticed that was symptomatic. At that time, I thought it would be best to wait until she recovered a little bit better. She presents to my clinic today on 09/04 with still moderately symptomatic pain in her umbilical area. ALLERGIES: To Bactrim and Keflex. PAST SURGICAL HISTORY: Includes a section. FAMILY HISTORY AND SOCIAL HISTORY: She is . She does not smoke. [place] here in the region. She otherwise has negative family history. REVIEW OF SYSTEMS: Negative for her. PHYSICAL EXAMINATION: HEENT: Normal. Chest: Lungs are clear bilaterally. Heart: Normal sinus rhythm. Abdomen: Mildly obese. She is tender in the infraumbilical area. No other signs of hernias or masses are noted. Extremities: Have good range of motion and are normal. Neurologic: Grossly intact. ASSESSMENT: Umbilical hernia. PLAN: I discussed the risks, benefits, and expected outcomes now of fixing this hernia. I think she is far enough out and well healed from her delivery last month. The risks, benefits, and expected outcomes of doing this this week were discussed with her and is currently scheduled for 09/08. [facility] /[id number]
== END 2018-09-04 11:03 | disposition home or self-care (01) ==
LOC: DL.GSCL 10:28
DX: K42.9 Umbilical hernia without obstruction or gangrene (principal)
CPT/HCPCS: 99214

== ENCOUNTER 2018-09-08 06:23 | Day surgery (SDC) | payer BC, MEDICAID ==
[2018-09-08] MEDS ORDERED: Bupivacaine 0.25% 10 ML SDV INJECT ONE ×3 (06:24→08:18)
[2018-09-08] MEDS ORDERED: Ondansetron 4 MG/2 ML SDV IV ONE (06:24)
[2018-09-08] MEDS ORDERED: Lactated Ringers 1,000 ML IV ONE (06:24)
[2018-09-08] MEDS ORDERED: Propofol 200 MG/20 ML SDV IV ONE (06:24)
[2018-09-08] MEDS ORDERED: Midazolam 1 MG/ML 2 ML SDV IV ONE (06:24)
[2018-09-08] MEDS ORDERED: Ketorolac 30 MG/ML SDV IVPUSH ONE (06:24)
[2018-09-08] MEDS ORDERED: Dexamethasone 4 MG/ML SDV IV ONE (06:24)
[2018-09-08] MEDS ORDERED: ePHEDrine 50 MG/ML SDV IV ONE (06:24)
[2018-09-08] MEDS ORDERED: Lactated Ringers 1,000 ML IV SCH (06:45)
[2018-09-08] MEDS ORDERED: Bupivacaine 0.25% 10 ML SDV ONE (07:27)
[2018-09-08 11:28] VITALS: BP 113/78
--- NOTE | 2018-09-08 14:49 | OR ---
DATE: 09/08/2018 PREOPERATIVE DIAGNOSIS: Umbilical hernia. POSTOPERATIVE DIAGNOSIS: Umbilical hernia. PROCEDURE: Open umbilical hernia repair. ANESTHESIA: General. ESTIMATED BLOOD LOSS: None. SPECIMEN: None. INDICATION FOR PROCEDURE: This 33-year-old female has an umbilical hernia. She had this very symptomatic during her . She is now a month and is here for repair. PROCEDURE IN DETAIL: After adequate preparation, a vertical incision was made through a prior laparoscopic trocar site. This was taken down to the fascia. The umbilical area was detached from the skin and she had about 1 cm umbilical hernia. The fascia seemed to be intact from her prior trocar. The umbilical site was closed using a #1 Prolene in an interrupted fashion. 0.25% Marcaine plain was used to infiltrate the fascial area for postoperative localization. The subcu was closed with Vicryl and the skin closed with an intracuticular and Steri-Strips. Local was applied to the skin. The patient was taken to recovery room. [facility] /[id number]
== END 2018-09-08 11:15 | disposition home or self-care (01) ==
LOC: DL.SDS 06:23 → EDSTATUS 09:00 → DL.SDS 11:15
PROVIDERS: ATTEND Surgery
DX: K42.9 Umbilical hernia without obstruction or gangrene (principal); Z88.1 Allergy status to other antibiotic agents
CPT/HCPCS: 49585; 81025; J1100; J1885; J2250; J2405; J2704; J3490; J7120